=== PATIENT | female | born 1970 ===

== ENCOUNTER 2018-06-24 12:20 | Inpatient (IN) | payer MEDICAID, SELFPAY ==
[2018-06-24] MEDS ORDERED: Iohexol 240 (50 ml) PO ONE (13:11)
[2018-06-24] MEDS ORDERED: Sodium Chloride 0.9% 1,000 ML IV STA (13:13)
[2018-06-24 13:46] LABS: BASO % 1.5 % (0.0-2.0); EOS % 0.6 % (0.0-4.0); LYMPH # 0.4 K/uL (1.0-4.3); LYMPH % 13.1 % (20.0-40.0); MEAN CELL VOLUME 58.2 fl (81.0-99.0); MEAN CORPUSCULAR HGB CONC 29.2 g/dL (33.0-37.0); MONO # 0.6 K/uL (0.0-0.8); MONO % 18.4 % (0.0-10.0); NEUT # 2.2 K/uL (1.8-7.0); NEUT % 66.4 % (50.0-75.0); RBC 4.17 Mil/uL (3.80-5.20); RED CELL DISTRIBUTION WIDTH 17.9 % (11.5-14.5); WHITE BLOOD COUNT 3.4 K/uL (4.8-10.8)
[2018-06-24 13:53] LABS: HEMOGLOBIN 7.1 g/dL (12.0-16.0)
[2018-06-24 14:06] LABS: ALB/GLOB RATIO 1.4 (1.0-2.1); ALBUMIN 4.2 g/dL (3.5-5.0); ALT/SGPT 28 U/L (9-52); AST/SGOT 18 U/L (14-36); BLOOD UREA NITROGEN 10 mg/dl (7-17); CALCIUM 9.1 mg/dL (8.4-10.2); GFR NON-AFRICAN AMERICAN > 60; LIPASE 36 U/L (23-300)
--- NOTE | 2018-06-24 14:20 | ED PDOC ---
HPI: Abdomen Time Seen by Provider: 06/24/18 12:38 Chief Complaint (Nursing): Abdominal Pain Chief Complaint (Provider): Abdominal Pain History Per: Patient History/Exam Limitations: no limitations Onset/Duration Of Symptoms: Intermittent Episodes (x1 week) Current Symptoms Are (Timing): Still Present Additional Complaint(s): 48 year old female presents to the ED for evaluation of intermittent diffuse abdominal pain for the past week associated with nausea, decreased appetite and occasional throat pain. She notes the pain worsens when she tries to eat. Otherwise denies vomiting, bloody stools, constipation, diarrhea, fever, urinary symptoms, chest pain, difficulty breathing, and headache. PMD: [facility] Past Medical History Reviewed: Historical Data, Nursing Documentation, Vital Signs Vital Signs: Last Vital Signs Temp 97.0 F L 06/24/18 12:23 Pulse 94 H 06/24/18 12:23 Resp 16 06/24/18 12:23 BP 117/78 06/24/18 12:23 Pulse Ox 99 06/24/18 12:23 - Medical History PMH: Anemia Denies: Diabetes, HTN - Surgical History Surgical History: Appendectomy Other surgeries: intestinal surgery - Family History Family History: States: Unknown Family Hx - Social History Current smoker - smoking cessation education provided: No Alcohol: None Drugs: Denies - Home Medications Home Medications: Ambulatory Orders Medication Instructions Recorded 5-Hydroxytryptophan (5-Htp) [5-Htp] 1 cap PO DAILY 06/24/18 Lactobacillus Combination No.8 1 cap PO DAILY 06/24/18 [Adult Probiotic] - Allergies Allergies/Adverse Reactions: Allergies Allergy/AdvReac Type Severity Reaction Status Date / Time No Known Allergies Allergy Verified 06/28/16 15:30 Review of Systems ROS Statement: Except As Marked, All Systems Reviewed And Found Negative Constitutional: Negative for: Fever ENT: Positive for: Throat Pain Cardiovascular: Negative for: Chest Pain Respiratory: Negative for: Other (difficulty breathing) Gastrointestinal: Positive for: Nausea, Abdominal Pain (diffuse). Negative for: Vomiting, Diarrhea, Constipation, Other (bloody stool) Genitourinary Female: Negative for: Dysuria, Frequency, Incontinence Neurological: Negative for: Headache Physical Exam - Reviewed Nursing Documentation Reviewed: Yes Vital Signs Reviewed: Yes - Physical Exam Appears: Positive for: No Acute Distress Head Exam: Positive for: ATRAUMATIC, NORMOCEPHALIC Skin: Positive for: Pallor Eye Exam: Positive for: Normal appearance, EOMI, PERRL. Negative for: Scleral icterus ENT: Positive for: Normal ENT Inspection Neck: Positive for: Normal, Painless ROM, Supple Cardiovascular/Chest: Positive for: Regular Rate, Rhythm, Tachycardia Respiratory: Positive for: Normal Breath Sounds. Negative for: Respiratory Distress Gastrointestinal/Abdominal: Positive for: Normal Exam, Soft, Tenderness (diffuse mild tenderness). Negative for: Distended, Guarding, Rebound Back: Positive for: Normal Inspection. Negative for: L CVA Tenderness, R CVA Tenderness Rectal: Positive for: Normal Exam. Negative for: Black Stool, Blood Streaked Stool Extremity: Positive for: Normal ROM (upper and lower extremities). Negative for: Deformity Neurologic/Psych: Positive for: Alert, Oriented (x3) - Laboratory Results Result Diagrams: 06/24/18 13:24 06/24/18 13:24 - ECG O2 Sat by Pulse Oximetry: 99 (RA) Pulse Ox Interpretation: Normal Medical Decision Making Medical Decision Making: Time: 1311 Initial Impression: abdominal pain Ddx includes: gastritis, pancreatitis, small bowel obstruction, and possible UTI Initial Plan: --CT abd/pelvis with IV contrast --CMP --Lipase --U-dip --U-preg --CBC with differential --Morphine 2mg IM --IV fluids --Iohexol 50ml PO 16:43 CT abd/pelvis FINDINGS: LOWER THORAX: Unremarkable. LIVER: Unremarkable. No gross lesion or ductal dilatation. GALLBLADDER AND BILE DUCTS: Unremarkable. PANCREAS: Unremarkable. No gross lesion or ductal dilatation. SPLEEN: Multiple small (less than 1 cm) splenic cysts., otherwise normal spleen ADRENALS: Unremarkable. No mass. KIDNEYS AND URETERS: Unremarkable. No hydronephrosis. No solid mass. VASCULATURE: Unremarkable. No aortic aneurysm. No atherosclerotic calcification or mural plaque present. BOWEL: Unremarkable. No obstruction. No gross mural thickening. APPENDIX: No abnormalities to suggest acute appendicitis. No right lower quadrant inflammatory processes identified. PERITONEUM: Unremarkable. No free fluid. No free air. LYMPH NODES: Unremarkable. No enlarged lymph nodes. BLADDER: Unremarkable. REPRODUCTIVE: Unremarkable. BONES: No acute fracture. OTHER FINDINGS: None. IMPRESSION: No significant or acute findings to account for/ related to the clinical presentation. Additional benign and/or incidental findings described above. Broomcorn Seeder for rectal exam was Leticia Tai. 16:45 --Patient experienced a very brief episode of weakness and syncope while in her room after walking to the bathroom. She denies hitting her head and was conscious when this provider arrived. 16:57 --Patient will be admitted to observation due to severe anemia, abdominal pain and syncope. Scribe Attestation: Documented by Marlee Montemayor acting as a scribe for Lex Marr MD. Provider Scribe Attestation: All medical record entries made by the Scribe were at my direction and personally dictated by me. I have reviewed the chart and agree that the record accurately reflects my personal performance of the history, physical exam, medical decision making, and the department course for this patient. I have also personally directed, reviewed, and agree with the discharge instructions and disposition. Disposition - Clinical Impression Clinical Impression: Abdominal pain, Severe anemia, Syncope - Patient ED Disposition Is Patient to be Admitted: Yes Discussed With DrJennifer: Kelly Meyer Counseled Patient/Family Regarding: Studies Performed, Diagnosis - Disposition Disposition Time: 16:57 Condition: FAIR - Pt Status Changed To: Hospital Disposition Of: Observation - POA Present On Arrival: Falls Or Trauma
[2018-06-24] MEDS ORDERED: Iohexol 300 100 ML IJ ONE (16:07)
[2018-06-24] MEDS ORDERED: Sodium Chloride 0.9% 50 ML IV ONE (16:08)
--- NOTE | 2018-06-24 16:47 | CT ---
Date of service: 06/24/2018 PROCEDURE: CT Abdomen and Pelvis with contrast HISTORY: Abdominal pain. Negative test (concurrent with this examination). COMPARISON: None. TECHNIQUE: Intravenous contrast dose: 90 CC OMNIPAQUE 300 Radiation dose: Total exam DLP = 370.60 mGy-cm. This CT exam was performed using one or more of the following dose reduction techniques: Automated exposure control, adjustment of the mA and/or kV according to patient size, and/or use of iterative reconstruction technique. FINDINGS: LOWER THORAX: Unremarkable. LIVER: Unremarkable. No gross lesion or ductal dilatation. GALLBLADDER AND BILE DUCTS: Unremarkable. PANCREAS: Unremarkable. No gross lesion or ductal dilatation. SPLEEN: Multiple small (less than 1 cm) splenic cysts., otherwise normal spleen ADRENALS: Unremarkable. No mass. KIDNEYS AND URETERS: Unremarkable. No hydronephrosis. No solid mass. VASCULATURE: Unremarkable. No aortic aneurysm. No atherosclerotic calcification or mural plaque present. BOWEL: Unremarkable. No obstruction. No gross mural thickening. APPENDIX: No abnormalities to suggest acute appendicitis. No right lower quadrant inflammatory processes identified. PERITONEUM: Unremarkable. No free fluid. No free air. LYMPH NODES: Unremarkable. No enlarged lymph nodes. BLADDER: Unremarkable. REPRODUCTIVE: Unremarkable. BONES: No acute fracture. OTHER FINDINGS: None. IMPRESSION: No significant or acute findings to account for/ related to the clinical presentation. Additional benign and/or incidental findings described above.
--- NOTE | 2018-06-24 17:53 | CT ---
Date of service: 06/24/2018 PROCEDURE: CT HEAD WITHOUT CONTRAST. HISTORY: Syncope COMPARISON: None available. TECHNIQUE: Axial computed tomography images were obtained through the head/brain without intravenous contrast. Radiation dose: Total exam DLP = 801.5 mGy-cm. This CT exam was performed using one or more of the following dose reduction techniques: Automated exposure control, adjustment of the mA and/or kV according to patient size, and/or use of iterative reconstruction technique. FINDINGS: HEMORRHAGE: No intracranial hemorrhage. BRAIN: No mass effect or edema. No atrophy or chronic microvascular ischemic changes. VENTRICLES: Unremarkable. No hydrocephalus. CALVARIUM: Unremarkable.. PARANASAL SINUSES: Unremarkable as visualized. No significant inflammatory changes. MASTOID AIR CELLS: Unremarkable as visualized. No inflammatory changes. OTHER FINDINGS: None. IMPRESSION: No acute intracranial hemorrhage
--- NOTE | 2018-06-24 18:39 | CP.PCM.HP ---
History of Present Illness - History of Present Illness History of Present Illness: CC: weakness HPI: 48 year old female with reported Hx CVA appx one year ago (not noted on head CT today) on aspirin daily, presented to the ED today for several complaints. She reports moderate to severe worsening generalized weakness ongoing for about one month. She also has heavy menses lasting 5 days a month using 5-10 pads daily. Patient denies any hematemesis, melena, hematochezia. She also complains of generalized burning abdominal pain mild to moderate, associated with reflux like symptoms. Patient appears pale, weak. Tachy 101-110, normotensive. CT abd pel negative. H/H 7.1/24. Afebrile, no wbc/bands. 1 unit PRBC ordered in ED, occult blood ordered. Will initiate PPI. Monitor overnight for symptomatic anemia. HD stable, no acute distress. ROS: per HPI all other systems reviewed and negative Present on Admission - Present on Admission Any Indicators Present on Admission: No Past Patient History - Past Social History Alcohol: None Drugs: Denies - CARDIAC Hx Hypertension: No - HEMATOLOGICAL/ONCOLOGICAL Hx Anemia: Yes - MUSCULOSKELETAL/RHEUMATOLOGICAL Hx Falls: No - PSYCHIATRIC Hx Substance Use: No - SURGICAL HISTORY Hx Appendectomy: Yes - ANESTHESIA Hx Anesthesia: Yes Hx Anesthesia Reactions: No Meds Allergies/Adverse Reactions: Allergies Allergy/AdvReac Type Severity Reaction Status Date / Time No Known Allergies Allergy Verified 06/28/16 15:30 Physical Exam - Constitutional Appears: Non-toxic, No Acute Distress - Head Exam Head Exam: ATRAUMATIC, NORMOCEPHALIC - Eye Exam Eye Exam: EOMI, Normal appearance, PERRL - ENT Exam ENT Exam: Mucous Membranes Moist, Normal Oropharynx - Respiratory Exam Respiratory Exam: Clear to Auscultation Bilateral, NORMAL BREATHING PATTERN - Cardiovascular Exam Cardiovascular Exam: Tachycardia, +S1, +S2 - GI/Abdominal Exam GI & Abdominal Exam: Normal Bowel Sounds, Soft. absent: Mass, Organomegaly - Extremities Exam Extremities exam: Positive for: normal capillary refill, pedal pulses present - Back Exam Back exam: absent: CVA tenderness (L), CVA tenderness (R) - Neurological Exam Neurological exam: Alert, Oriented x3, Reflexes Normal - Psychiatric Exam Psychiatric exam: Normal Affect, Normal Mood - Skin Skin Exam: Dry, Pallor, Warm Results - Vital Signs Recent Vital Signs: Last Vital Signs Temp 98.1 F 12/10/18 17:09 Pulse 99 H 06/24/18 17:59 Resp 18 06/24/18 17:59 BP 129/68 06/24/18 17:59 Pulse Ox 100 06/24/18 17:59 - Labs Result Diagrams: 06/24/18 13:24 06/24/18 13:24 Labs: Laboratory Results - last 24 hr 06/24/18 06/24/18 06/24/18 13:24 13:24 17:04 WBC 3.4 L RBC 4.17 Hgb 7.1 L Hct 24.2 L MCV 58.2 L MCH 17.0 L MCHC 29.2 L RDW 17.9 H Plt Count 350 D MPV 9.0 Neut % (Auto) 66.4 Lymph % (Auto) 13.1 L [place] % (Auto) 18.4 H Eos % (Auto) 0.6 Baso % (Auto) 1.5 Neut # (Auto) 2.2 Lymph # (Auto) 0.4 L [place] # (Auto) 0.6 Eos # (Auto) 0.0 Baso # (Auto) 0.0 Sodium 137 Potassium 3.9 Chloride 103 Carbon Dioxide 25 Anion Gap 13 BUN 10 Creatinine 0.5 L Est GFR ( Amer) > 60 Est GFR (Non-Af Amer) > 60 POC Glucose (mg/dL) 93 Random Glucose 90 Calcium 9.1 Total Bilirubin 0.6 AST 18 ALT 28 Alkaline Phosphatase 51 Troponin I Total Protein 7.3 Albumin 4.2 Globulin 3.0 Albumin/Globulin Ratio 1.4 Lipase 36 Blood Type Antibody Screen BBK History Checked 06/24/18 06/24/18 17:05 17:05 WBC RBC Hgb Hct MCV MCH MCHC RDW Plt Count MPV Neut % (Auto) Lymph % (Auto) [place] % (Auto) Eos % (Auto) Baso % (Auto) Neut # (Auto) Lymph # (Auto) [place] # (Auto) Eos # (Auto) Baso # (Auto) Sodium Potassium Chloride Carbon Dioxide Anion Gap BUN Creatinine Est GFR ( Amer) Est GFR (Non-Af Amer) POC Glucose (mg/dL) Random Glucose Calcium Total Bilirubin AST ALT Alkaline Phosphatase Troponin I < 0.0120 Total Protein Albumin Globulin Albumin/Globulin Ratio Lipase Blood Type B POSITIVE Antibody Screen Negative BBK History Checked Patient has bt Assessment & Plan - Assessment and Plan (Free Text) Plan: 48 year old female with reported Hx CVA appx one year ago (not noted on head CT today) on aspirin daily, presented to the ED today for several complaints. She reports moderate to severe worsening generalized weakness ongoing for about one month. She also has heavy menses lasting 5 days a month using 5-10 pads daily. Patient denies any hematemesis, melena, hematochezia. She also complains of generalized burning abdominal pain mild to moderate, associated with reflux like symptoms. Patient appears pale, weak. Tachy 101-110, normotensive. CT abd pel negative. H/H 7.1/24. Afebrile, no wbc/bands. 1 unit PRBC ordered in ED, occult blood ordered. Will initiate PPI. Monitor overnight for symptomatic anemia. HD stable, no acute distress. Symptomatic Anemia - 1 unit PRBC in ED - repeat CBC in AM - HOLD ASA and any ac for dvt ppx - monitor on tele Hx of CVA - patient reports hx of CVA however none noted on head CT Abdominal Pain, discomfort - CTAP negative - start PPI - Occult blood pending DVT ppx SCDs, as concern for bleed given anemia
[2018-06-25 05:31] LABS: MEAN CELL VOLUME 61.5 fl (81.0-99.0); MEAN CORPUSCULAR HEMOGLOBIN 18.8 pg (27.0-31.0); MEAN CORPUSCULAR HGB CONC 30.5 g/dL (33.0-37.0); RBC 4.25 Mil/uL (3.80-5.20); RED CELL DISTRIBUTION WIDTH 20.2 % (11.5-14.5); WHITE BLOOD COUNT 3.3 K/uL (4.8-10.8)
[2018-06-25 05:47] LABS: BLOOD UREA NITROGEN 10 mg/dl (7-17); CALCIUM 8.7 mg/dL (8.4-10.2); GFR NON-AFRICAN AMERICAN > 60
--- NOTE | 2018-06-25 06:25 | CARD ---
APPROVED REPORT Date of service: 06/24/2018 EKG Measurement Heart [id number] <Conclusion> Sinus tachycardia Low voltage QRS Nonspecific ST and T wave abnormality Abnormal ECG
[2018-06-25] MEDS ORDERED: Potassium Chloride 20 mEq ER Tab PO ONE (06:38)
--- NOTE | 2018-06-25 07:48 | CP.PCM.PN ---
Subjective - Date & Time of Evaluation Date of Evaluation: 06/25/18 Time of Evaluation: 07:48 - Subjective Subjective: Pt seen and examined at bedside. Denies acute overnight events. Reports generalized improvement after 1 unit of transfused blood. However, pt reports continued throat pain with swallowing and epigastric pain. She reports being treated for vincent esophagitis recently. (Unknown time frame) Objective - Vital Signs/Intake and Output Vital Signs (last 24 hours): Temp Pulse Resp BP Pulse Ox 98.1 F 74 18 98/61 L 98 06/25/18 04:49 06/25/18 04:49 06/25/18 04:49 06/25/18 04:49 06/25/18 04:49 Intake and Output: 06/25/18 06/25/18 06:59 18:59 Intake Total 375 Balance 375 - Medications Medications: Current Medications Acetaminophen (Tylenol 325mg Tab) 650 mg PO Q6 PRN PRN Reason: Pain, Mild (1-3) Morphine Sulfate (Morphine) 1 mg IVP Q4 PRN PRN Reason: Pain, moderate (4-7) Last Admin: 06/25/18 02:13 Dose: 1 mg Morphine Sulfate (Morphine) 2 mg IVP Q4 PRN PRN Reason: Pain, severe (8-10) Last Admin: 06/24/18 20:20 Dose: 2 mg Pantoprazole Sodium (Protonix Ec Tab) 20 mg PO DAILY [id number] - Labs Labs: 06/25/18 04:05 06/25/18 04:05 - Constitutional Appears: Well, Non-toxic, No Acute Distress - Eye Exam Eye Exam: EOMI - ENT Exam ENT Exam: Mucous Membranes Moist Additional comments: No oral thrush - Neck Exam Neck Exam: Full ROM - Respiratory Exam Respiratory Exam: Clear to Ausculation Bilateral, NORMAL BREATHING PATTERN. absent: Wheezes - Cardiovascular Exam Cardiovascular Exam: REGULAR RHYTHM, +S1, +S2 - GI/Abdominal Exam GI & Abdominal Exam: Soft, Normal Bowel Sounds. absent: Tenderness - Neurological Exam Neurological Exam: Alert, Awake, CN II-XII Intact, Oriented x3 - Psychiatric Exam Psychiatric exam: Normal Affect, Normal Mood Assessment and Plan - Assessment and Plan (Free Text) Assessment: 48 yo F with pmhs of reported CVA 1 year ago on daily ASA admitted for symptomatic anemia. Plan: Anemia -Symptomatic: fatigue/lethargy; improved s/p 1 unit PRBC -H/H: 7.1/24.2 > 8.0/26.2 -MCV: 61.5 -s/p 1 unit PRBC pending 1 unit -LMP 06/12/2018; no active vaginal bleed -f/u labs Dysphagia -2 months: progressive with solids and fluids -Hx of vincent esophagitis, treated -Barium swallow screen; R/O edusunday benítez -GI: Dr. Duong Epigstric pain -Intermittent -CTAP negative -on ppi -pending occult blood Hx of CVA -CT head reviewed -held ASA DVT/GI prophylaxis -SCDs -Pantoprazole Future discharge planning: to f/u with Dr. Beltran Plan d/w Dr. Saran Bear MD PGY2
[2018-06-25] MEDS: Pantoprazole 20 mg EC Tab PO SCH (09:32)
[2018-06-25] MEDS ORDERED: Barium Sulfate Susp 0.1% w/v, 0.1% w/w 450 mL Bottle PO ONE (13:00)
--- NOTE | 2018-06-25 17:09 | RAD ---
Date of service: 06/25/2018 PROCEDURE: Modified barium swallow study. HISTORY: dysphagia to liquids and solids COMPARISON: None available. TECHNIQUE: Under fluoroscopic guidance, barium meals of various consistency were administered to the patient by the speech pathologist. Fluoroscopic time: 66.5 second. Cumulative radiation dose: 2.53 mGy FINDINGS: No penetration or aspiration was observed during this study. IMPRESSION: No penetration or aspiration observed. Please refer to the detailed report and recommendations of the speech pathologist.
[2018-06-26 05:40] LABS: HEMOGLOBIN 9.6 g/dL (12.0-16.0); MEAN CELL VOLUME 64.5 fl (81.0-99.0); MEAN CORPUSCULAR HEMOGLOBIN 19.8 pg (27.0-31.0); MEAN CORPUSCULAR HGB CONC 30.7 g/dL (33.0-37.0); RBC 4.85 Mil/uL (3.80-5.20); RED CELL DISTRIBUTION WIDTH 24.9 % (11.5-14.5); WHITE BLOOD COUNT 4.2 K/uL (4.8-10.8)
[2018-06-26 05:46] LABS: BLOOD UREA NITROGEN 10 mg/dl (7-17); CALCIUM 9.2 mg/dL (8.4-10.2); GFR NON-AFRICAN AMERICAN > 60
[2018-06-26] MEDS: Pantoprazole 20 mg EC Tab PO SCH (08:51)
[2018-06-26 10:26] LABS: IRON 33 ug/dL (37-170)
[2018-06-26 10:35] LABS: % IRON SATURATION 8 % (20-55); TOTAL IRON BINDING CAPACITY 397 ug/dL (250-450)
--- NOTE | 2018-06-26 11:41 | RAD ---
Date of service: 06/26/2018 HISTORY: dysphagia solids and liquids COMPARISON: None available. FINDINGS: BOWEL: Extensive contrast throughout the left and right colon including portions of the transverse colon. Colonic diverticulosis suggested. Evaluation of the gastric antrum duodenum would be expected to be obscured No bowel obstruction noted. BONES: Normal. OTHER FINDINGS: None. IMPRESSION: Extensive residual contrast throughout the colon including the transverse colon. Left colonic diverticulosis noted. No bowel obstruction suggested.
--- NOTE | 2018-06-26 14:34 | CP.PCM.PN ---
Subjective - Date & Time of Evaluation Date of Evaluation: 06/26/18 Time of Evaluation: 07:00 - Subjective Subjective: Pt seen and examined at bedside. Reports improvement in abdominal pain, however, still occurs while eating. No acute events overnight. Denies N/V/CP/SOB Objective - Vital Signs/Intake and Output Vital Signs (last 24 hours): Temp Pulse Resp BP Pulse Ox 98.5 F 77 20 101/63 99 06/26/18 12:21 06/26/18 12:21 06/26/18 12:21 06/26/18 12:21 06/26/18 12:21 - Medications Medications: Current Medications Acetaminophen (Tylenol 325mg Tab) 650 mg PO Q6 PRN PRN Reason: Pain, Mild (1-3) Docusate Sodium (Colace) 100 mg PO BID [facility] Last Admin: 06/26/18 09:53 Dose: 100 mg Morphine Sulfate (Morphine) 1 mg IVP Q4 PRN PRN Reason: Pain, moderate (4-7) Last Admin: 06/26/18 06:13 Dose: 1 mg Morphine Sulfate (Morphine) 2 mg IVP Q4 PRN PRN Reason: Pain, severe (8-10) Last Admin: 06/25/18 20:38 Dose: 2 mg Pantoprazole Sodium (Protonix Ec Tab) 20 mg PO DAILY [facility] Last Admin: 06/26/18 08:51 Dose: 20 mg Sucralfate (Carafate Tab) 1 gm PO TID [facility] Last Admin: 06/26/18 12:03 Dose: 1 gm - Labs Labs: 06/26/18 04:25 06/26/18 04:25 - Constitutional Appears: Well, Non-toxic - Eye Exam Eye Exam: EOMI - ENT Exam ENT Exam: Mucous Membranes Moist - Respiratory Exam Respiratory Exam: Clear to Ausculation Bilateral, NORMAL BREATHING PATTERN. ab sent: Wheezes - Cardiovascular Exam Cardiovascular Exam: REGULAR RHYTHM, +S1, +S2 - GI/Abdominal Exam GI & Abdominal Exam: Soft, Tenderness (epigastric), Normal Bowel Sounds - Neurological Exam Neurological Exam: Alert, Awake, CN II-XII Intact, Normal Gait, Oriented x3 - Psychiatric Exam Psychiatric exam: Normal Affect, Normal Mood Assessment and Plan - Assessment and Plan (Free Text) Assessment: 48 yo F with pmhs of reported CVA 1 year ago on daily ASA admitted for sympt omatic anemia. Plan: Anemia -Symptomatic: fatigue/lethargy; improved s/p 2 unit PRBC -H/H: 7.1/24.2 > 8.0/26.2 > 9.6/31.3 -MCV: 61.5 -FE: 33; TIBC: 397; % SAT: 8; Ferritin: 14.4 -LMP 06/12/2018; no active vaginal bleed -f/u labs Dysphagia -2 months: progressive with solids and fluids -Hx of vincent esophagitis, treated -Barium swallow screen: no penetration or aspiration -Upper GI series: pending -R/O edu benítez -GI: Dr. Duong: EGD 06/27/2018 Epigstric pain -Intermittent; with foods -ddx: gastric ulcer -CTAP negative -on ppi -started sucralfate -pending occult blood -GI: for EGD 06/27/2018 Hx of CVA -CT head reviewed -held ASA DVT/GI prophylaxis -SCDs -Pantoprazole Future discharge planning: to f/u with Dr. Beltran Plan d/w Dr. Saran Bear MD PGY2
--- NOTE | 2018-06-26 18:20 | CP.PCM.CON ---
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 Has been having heavy periods. Reports difficulty swallowing and pain in throat. Modified Barium swallow was negative. Review of Systems - Constitutional Constitutional: absent: Chills - EENT Eyes: absent: Blurred Vision Ears: absent: Decreased Hearing Nose/Mouth/Throat: absent: Nasal Congestion - Cardiovascular Cardiovascular: absent: Chest Pain - Respiratory Respiratory: absent: Dyspnea - Gastrointestinal Gastrointestinal: absent: Abdominal Pain - Genitourinary Genitourinary: absent: Change in Urinary Stream Past Patient History - Past Medical History & Family History Past Medical History?: Yes - Past Social History Smoking Status: Never Smoked - CARDIAC Hx Cardiac Disorders: No Hx Hypertension: No - PULMONARY Hx Respiratory Disorders: No - NEUROLOGICAL Hx Neurological Disorder: No - HEENT Hx HEENT Problems: No - RENAL Hx Chronic Kidney Disease: No - ENDOCRINE/METABOLIC Hx Endocrine Disorders: No - HEMATOLOGICAL/ONCOLOGICAL Hx Blood Disorders: Yes Hx Anemia: Yes - INTEGUMENTARY Hx Dermatological Problems: No - MUSCULOSKELETAL/RHEUMATOLOGICAL Hx Musculoskeletal Disorders: No Hx Falls: No - GASTROINTESTINAL Hx Gastrointestinal Disorders: No - GENITOURINARY/GYNECOLOGICAL Hx Genitourinary Disorders: No - PSYCHIATRIC Hx Psychophysiologic Disorder: No Hx Substance Use: No - SURGICAL HISTORY Hx Surgeries: Yes Hx Appendectomy: Yes Hx Section: Yes Other/Comment: intestinal surgery - ANESTHESIA Hx Anesthesia: Yes Hx Anesthesia Reactions: No Hx Malignant Hyperthermia: No Has any member of the family had a problem w/ anesthesia?: No Meds Allergies/Adverse Reactions: Allergies Allergy/AdvReac Type Severity Reaction Status Date / Time No Known Allergies Allergy Verified 06/28/16 15:30 - Medications Medications: Current Medications Acetaminophen (Tylenol 325mg Tab) 650 mg PO Q6 PRN PRN Reason: Pain, Mild (1-3) Docusate Sodium (Colace) 100 mg PO BID YAAKOV Last Admin: 06/26/18 16:38 Dose: 100 mg Morphine Sulfate (Morphine) 1 mg IVP Q4 PRN PRN Reason: Pain, moderate (4-7) Last Admin: 06/26/18 06:13 Dose: 1 mg Morphine Sulfate (Morphine) 2 mg IVP Q4 PRN PRN Reason: Pain, severe (8-10) Last Admin: 06/25/18 20:38 Dose: 2 mg Pantoprazole Sodium (Protonix Ec Tab) 20 mg PO DAILY [facility] Last Admin: 06/26/18 08:51 Dose: 20 mg Sucralfate (Carafate Tab) 1 gm PO TID [facility] Last Admin: 06/26/18 16:38 Dose: 1 gm Physical Exam - Constitutional Appears: No Acute Distress - Head Exam Head Exam: ATRAUMATIC - Eye Exam Eye Exam: Normal appearance - ENT Exam ENT Exam: Mucous Membranes Moist - Respiratory Exam Respiratory Exam: Clear to Auscultation Bilateral - Cardiovascular Exam Cardiovascular Exam: REGULAR RHYTHM, +S1, +S2 - GI/Abdominal Exam GI & Abdominal Exam: Normal Bowel Sounds, Soft. absent: Tenderness Results - Vital Signs Recent Vital Signs: Last Vital Signs Temp 97.9 F 06/26/18 16:00 Pulse 77 06/26/18 16:00 Resp 16 06/26/18 16:00 BP 108/72 06/26/18 16:00 Pulse Ox 98 06/26/18 16:00 - Labs Result Diagrams: 06/26/18 04:25 06/26/18 04:25 Labs: Laboratory Results - last 24 hr 06/24/18 06/25/18 06/26/18 17:05 10:32 04:25 WBC 4.2 L RBC 4.85 Hgb 9.6 L Hct 31.3 L MCV 64.5 L D MCH 19.8 L MCHC 30.7 L RDW 24.9 H Plt Count 312 Sodium Potassium Chloride Carbon Dioxide Anion Gap BUN Creatinine Est GFR ( Amer) Est GFR (Non-Af Amer) Random Glucose Calcium Iron TIBC % Saturation Ferritin HIV 1&2 Ag/Ab, 4th Gen Nonreactive Crossmatch See Detail 06/26/18 06/26/18 06/26/18 04:25 10:02 10:02 WBC RBC Hgb Hct MCV MCH MCHC RDW Plt Count Sodium 139 Potassium 3.7 Chloride 102 Carbon Dioxide 27 Anion Gap 14 BUN 10 Creatinine 0.6 L Est GFR ( Amer) > 60 Est GFR (Non-Af Amer) > 60 Random Glucose 86 Calcium 9.2 Iron 33 L TIBC 397 % Saturation 8 L Ferritin 14.4 HIV 1&2 Ag/Ab, 4th Gen Crossmatch Assessment & Plan (1) Dysphagia Assessment and Plan: 48 yo with dysphagia and odynophagia. Upper endoscopy to r/o esophagitis, ulcer or partially obstructing esophageal lesion. Status: Acute
[2018-06-27 06:26] LABS: HEMOGLOBIN 9.9 g/dL (12.0-16.0); MEAN CELL VOLUME 64.6 fl (81.0-99.0); MEAN CORPUSCULAR HEMOGLOBIN 19.8 pg (27.0-31.0); MEAN CORPUSCULAR HGB CONC 30.7 g/dL (33.0-37.0); RBC 4.99 Mil/uL (3.80-5.20); RED CELL DISTRIBUTION WIDTH 25.4 % (11.5-14.5); WHITE BLOOD COUNT 4.5 K/uL (4.8-10.8)
[2018-06-27 06:30] LABS: INR 1.1; PROTHROMBIN TIME 12.3 Seconds (9.8-13.1)
[2018-06-27 06:46] LABS: BLOOD UREA NITROGEN 15 mg/dl (7-17); CALCIUM 9.4 mg/dL (8.4-10.2); GFR NON-AFRICAN AMERICAN > 60
[2018-06-27 11:55] VITALS: TEMP 98
[2018-06-27] MEDS ORDERED: Propofol 10 mg/ml Inj (20 ML) ONE (12:13)
[2018-06-27 13:06] VITALS: BP 100/65; PULSE 76; RESP 16; O2SAT 99
--- NOTE | 2018-06-27 14:50 | CP.PCM.DIS ---
Provider - Provider Date of Admission: 06/26/18 14:51 Attending physician: Kelly Meyer DO Consults: 06/25/18 09:22 Gastroenterology Consult Routine Comment: Consulting Provider: Edmond Duong Consulting Physician: Edmond Duong Reason for Consult: dysphagia to solids and liquids Time Spent in preparation of Discharge (in minutes): 30 Hospital Course - Lab Results Lab Results: Most Recent Lab Values WBC 4.5 K/uL (4.8-10.8) L 06/27/18 04:20 RBC 4.99 Mil/uL (3.80-5.20) 06/27/18 04:20 Hgb 9.9 g/dL (12.0-16.0) L 06/27/18 04:20 Hct 32.2 % (34.0-47.0) L 06/27/18 04:20 MCV 64.6 fl (81.0-99.0) L 06/27/18 04:20 MCH 19.8 pg (27.0-31.0) L 06/27/18 04:20 MCHC 30.7 g/dL (33.0-37.0) L 06/27/18 04:20 RDW 25.4 % (11.5-14.5) H 06/27/18 04:20 Plt Count 300 K/uL (130-400) 06/27/18 04:20 MPV 9.0 fl (7.2-11.7) 06/24/18 13:24 Neut % (Auto) 66.4 % (50.0-75.0) 06/24/18 13:24 Lymph % (Auto) 13.1 % (20.0-40.0) L 06/24/18 13:24 [place] % (Auto) 18.4 % (0.0-10.0) H 06/24/18 13:24 Eos % (Auto) 0.6 % (0.0-4.0) 06/24/18 13:24 Baso % (Auto) 1.5 % (0.0-2.0) 06/24/18 13:24 Neut # (Auto) 2.2 K/uL (1.8-7.0) 06/24/18 13:24 Lymph # (Auto) 0.4 K/uL (1.0-4.3) L 06/24/18 13:24 [place] # (Auto) 0.6 K/uL (0.0-0.8) 06/24/18 13:24 Eos # (Auto) 0.0 K/uL (0.0-0.7) 06/24/18 13:24 Baso # (Auto) 0.0 K/uL (0.0-0.2) 06/24/18 13:24 PT 12.3 Seconds (9.8-13.1) 06/27/18 04:20 INR 1.1 06/27/18 04:20 APTT 27.0 Seconds (25.6-37.1) 06/27/18 04:20 Sodium 140 mmol/l (132-148) 06/27/18 04:20 Potassium 3.8 MMOL/L (3.6-5.0) 06/27/18 04:20 Chloride 103 mmol/L (98-107) 06/27/18 04:20 Carbon Dioxide 26 mmol/L (22-30) 06/27/18 04:20 Anion Gap 15 (10-20) 06/27/18 04:20 BUN 15 mg/dl (7-17) 06/27/18 04:20 Creatinine 0.7 mg/dl (0.7-1.2) 06/27/18 04:20 Est GFR ( Amer) > 60 06/27/18 04:20 Est GFR (Non-Af Amer) > 60 06/27/18 04:20 POC Glucose (mg/dL) 93 mg/dL (65-110) 06/24/18 17:04 Random Glucose 78 mg/dL (65-105) 06/27/18 04:20 Calcium 9.4 mg/dL (8.4-10.2) 06/27/18 04:20 Iron 33 ug/dL (37-170) L 06/26/18 10:02 TIBC 397 ug/dL (250-450) 06/26/18 10:02 % Saturation 8 % (20-55) L 06/26/18 10:02 Ferritin 14.4 ng/Ml (6.24-137.0) 06/26/18 10:02 Total Bilirubin 0.6 mg/dl (0.2-1.3) 06/24/18 13:24 AST 18 U/L (14-36) 06/24/18 13:24 ALT 28 U/L (9-52) 06/24/18 13:24 Alkaline Phosphatase 51 U/L (38-126) 06/24/18 13:24 Troponin I < 0.0120 ng/mL (0.00-0.120) 06/24/18 17:05 Total Protein 7.3 G/DL (6.3-8.2) 06/24/18 13:24 Albumin 4.2 g/dL (3.5-5.0) 06/24/18 13:24 Globulin 3.0 gm/dL (2.2-3.9) 06/24/18 13:24 Albumin/Globulin Ratio 1.4 (1.0-2.1) 06/24/18 13:24 Lipase 36 U/L (23-300) 06/24/18 13:24 Stool Occult Blood Negative (NEGATIVE) 06/27/18 05:15 HIV-1 Ab Rapid Screen Non reactive (NON REAC) 06/25/18 10:32 HIV 1&2 Ag/Ab, 4th Gen Nonreactive (Nonreactive) 06/25/18 10:32 Blood Type B POSITIVE 06/24/18 17:05 Antibody Screen Negative 06/24/18 17:05 Crossmatch See Detail 06/24/18 17:05 BBK History Checked Patient has bt 06/24/18 17:05 - Hospital Course Hospital Course: 48 yo F with pmhx of reported CVA 1 year ago on daily ASA admitted for symptomatic anemia. Anemia: s/p 2 unit PRBC; H/H: 7.1/24.2 > 8.0/26.2 > 9.6/31.3; MCV: 61.5; FE: 33; TIBC: 397; % SAT: 8; Ferritin: 14.4; LMP 06/12/2018; no active vaginal bleed Dysphagia: 2 months: progressive with solids and fluids and Hx of vincent esophagitis, treated; Epigstric pain: Intermittent; with foods likely gastric ulcer; CTAP negative; occult blood: negative; on ppi and started sucralfate -GI: Dr. Duong: Barium swallow screen: no penetration or aspiration; EGD: small sliding hiatal hernia, chronic gastritis; biopsied. normal examined duodenum Pt d/c home with omeprazole and sucralfate. Pt has appointment scheduled with Dr. Morocho at [facility]. Recommend f/u with colonoscopy. Plan dw Dr Saran Bear MD PGY-2 Discharge Exam - Head Exam Head Exam: ATRAUMATIC - Eye Exam Eye Exam: EOMI - ENT Exam ENT Exam: Mucous Membranes Moist - Respiratory Exam Respiratory Exam: Clear to PA & Lateral. absent: Wheezes - Cardiovascular Exam Cardiovascular Exam: REGULAR RHYTHM, +S1, +S2 - GI/Abdominal Exam GI & Abdominal Exam: Normal Bowel Sounds, Soft - Neurological Exam Neurological exam: Alert, CN II-XII Intact, Normal Gait, Oriented x3 - Psychiatric Exam Psychiatric exam: Normal Affect, Normal Mood Discharge Plan - Discharge Medications Prescriptions: Omeprazole 20 mg PO DAILY #30 tab.rap. Sucralfate [Carafate Tab] 1 gm PO TID #90 tab - Follow Up Plan Condition: FAIR Disposition: HOME/ ROUTINE Instructions: Acute Abdomen (Belly Pain), Adult (DC), Anemia of Chronic Disease (DC), Hiatal Hernia (DC), Acute Abdominal Pain (DC), Acute Abdominal Pain (GEN) Additional Instructions: pt has scheduled follow up appt in the clinic with on 07/29/17 Referrals: [facility] [Outside] Edmond Duong MD [Staff Provider] -
== END 2018-06-27 16:00 | disposition home or self-care (01) | DRG 241 ==
LOC: H.ER 12:20 → H.ERHOLD 16:57 → H.TEL 23:38 → OBSVTOIN 06-26 14:51
PROVIDERS: ADMIT Student in an Organized Health Care Education/Training Program; ATTEND Student in an Organized Health Care Education/Training Program
PROC: 30233N1 Transfusion of Nonautologous Red Blood Cells into Peripheral Vein, Percutaneous Approach (ICD-10-PCS; 2018-06-24)
PROC: 0DB18ZX Excision of Upper Esophagus, Via Natural or Artificial Opening Endoscopic, Diagnostic (ICD-10-PCS; 2018-06-27)
PROC: 0DB38ZX Excision of Lower Esophagus, Via Natural or Artificial Opening Endoscopic, Diagnostic (ICD-10-PCS; principal; 2018-06-27 15:30)
DX: K25.9 Gastric ulcer, unspecified as acute or chronic, without hemorrhage or perforation (principal); K29.50 Unspecified chronic gastritis without bleeding; R13.10 Dysphagia, unspecified; D64.9 Anemia, unspecified; N92.0 Excessive and frequent menstruation with regular cycle; K44.9 Diaphragmatic hernia without obstruction or gangrene; Z79.82 Long term (current) use of aspirin; Z86.73 Personal history of transient ischemic attack (TIA), and cerebral infarction without residual deficits; Z90.49 Acquired absence of other specified parts of digestive tract